=== PATIENT | male | born 1940 | race Caucasian/White ===

== ENCOUNTER 2023-06-09 10:29 | Emergency (ER) | payer MEDICARE, SELFPAY ==
[2023-06-09 10:45] VITALS: BP 208/97; PULSE 61; RESP 18; TEMP 36.8; O2SAT 100; BMI 34.0
[2023-06-09 11:15] LABS: Add Manual Diff / Slide Review NO; Basophils Absolute Auto 100 /uL (0-100); Basophils Percent Auto 1.1 % (0-2); Eosinophils Absolute Auto 200 /uL (0-450); Hematocrit 38.1 % (41-53); Hemoglobin 12.9 g/dL (13.5-17.5); Lymphocytes Absolute Auto 1900 /uL (1100-4500); Lymphocytes Percent Auto 23.6 % (25-40); Mean Corpuscular HGB Conc 33.9 % (30-36); Mean Corpuscular Hemoglobin 33.1 PG (26-34); Mean Corpuscular Volume 97.7 fL (80-100); Monocytes Absolute Auto 700 /uL (0-900); Monocytes Percent Auto 8.6 % (3-14); Neutrophils Absolute Auto 5200 /uL (1500-7000); Neutrophils Percent Auto 63.7 % (50-75); Platelet Count 228 X10^3/uL (150-400); White Blood Cell Count 8.1 X10^3/uL (4.5-11.0)
[2023-06-09 11:27] LABS: Alanine Aminotransferase 32 IU/L (<50); Albumin 4.2 g/dL (3.5-5.0); Albumin Globulin Ratio 1.4 (1.0-2.8); Alkaline Phosphatase 70 U/L (38-126); Aspartate Aminotransferase 32 IU/L (17-59); BUN Creatinine Ratio 30.1 (6-22); Bilirubin Total 0.8 mg/dL (0.2-1.3); Blood Urea Nitrogen 22 mg/dL (9-20); Calcium 9.3 mg/dL (8.4-10.2); Carbon Dioxide 29 mmol/L (22-32); Chloride 99 mmol/L (98-107); Estimated Glomerular Filt Rate > 60 mL/min (>60); Globulin 2.9 g/dL (1.7-4.1); Glucose 112 mg/dL (80-110); HEMOLYSIS < 15 (0-50); Lipase 36 U/L (23-300); Sodium 134 mmol/L (137-145); Total Protein 7.1 g/dL (6.3-8.2)
--- NOTE | 2023-06-09 11:47 | ED_ITS ---
HPI - Abdominal Pain General Chief Complaint: Abdominal Pain Stated Complaint: alot of ABD Pain Time Seen by Provider: 06/09/23 11:01 Source: patient Mode of arrival: Family Vehicle Limitations: no limitations History of Present Illness HPI narrative: This is an 82-year-old male with history of hypertension and atrial fibrillation on warfarin. Patient presents with complaint of left lower quadrant pain that has been present for about 4 5 days. He states initially very sharp and occasional, in the last 24 hours has become constant and persistent. He states it is worse with movement but does not hurt in his back or on his flank. He denies fevers or chills. No nausea no vomiting. No chest pain or shortness of breath. States it is very localized to the left side. Normal bowel movements, no black or bloody stools. He states he is urinary frequency been somewhat chronic but a little bit more recently. No dysuria no hematuria or difficulty with urination otherwise. Patient states he takes amlodipine, atenolol, hydrochlorothiazide, enalapril, warfarin as his daily medications. Denies prior surgeries. No known drug allergies. Former pipe smoker, 2 alcoholic drinks daily. Uses marijuana no other recreational or IV drugs. Related Data Home Medications Medication Instructions Recorded Confirmed amlodipine 5 mg tablet 5 mg PO DAILY 06/09/23 06/09/23 atenolol 25 mg tablet 25 mg PO BID 06/09/23 06/09/23 fluorouracil 5 % topical cream applic topical BID 06/09/23 hydrochlorothiazide 25 mg tablet 25 mg PO DAILY 06/09/23 06/09/23 lisinopril 40 mg tablet 40 mg PO BID 06/09/23 06/09/23 tadalafil 20 mg tablet 20 mg PO DAILY PRN intercourse 06/09/23 06/09/23 warfarin 2.5 mg tablet 5 mg PO DAILY 06/09/23 06/09/23 warfarin 5 mg tablet mg PO 06/09/23 zolpidem 5 mg tablet 7.5 mg PO ONCE PM PRN insomnia 06/09/23 06/09/23 Allergies Allergy/AdvReac Type Severity Reaction Status Date / Time No Known Drug Allergies Allergy Verified 06/09/23 10:51 Review of Systems Review of Systems ROS Unobtainable: All systems reviewed & are unremarkable except as noted in HPI and below Patient History Social History Smoking Status: Former smoker Smoking Status: Former smoker tobacco type: cigarettes alcohol intake frequency: 0-2 drinks per day Substance Use Type: marijuana Exam Narrative Exam Narrative: GENERAL: Alert and oriented x three, mild distress. HEENT: Head normocephalic, atraumatic, EOMI, pupils reactive, face symmetric, moist mucous membranes NECK: Supple, full range of motion CARDIOVASCULAR: Regular rate and rhythm without murmurs, rubs or gallops. RESPIRATORY: Breath sounds equal bilaterally, no wheezes rales or rhonchi. ABDOMEN: Soft, nontender. Normoactive bowel sounds all 4 quadrants. No guarding or rebound, rigidity, no mass : No CVA tenderness BACK: No cervical, thoracic or lumbar vertebral point tenderness. Patient has normal range of motion. Patient's gait is normal. Normal sensation bilateral lower extremities. EXTREMITIES: Normal range of motion, no clubbing or edema. Neurovascularly intact NEUROLOGICAL: Cranial nerves II through XII grossly intact. Moving all extremities SKIN: Warm, dry, no petechiae, no rashes or lesions, erythema, no blisters or other skin changes. Initial Vital Signs Initial Vital Signs: Vital Signs Temperature 98.3 F 06/09/23 10:45 Pulse Rate 61 06/09/23 10:45 Respiratory Rate 18 06/09/23 10:45 Blood Pressure 208/97 H 06/09/23 10:45 Pulse Oximetry 100 06/09/23 10:45 Oxygen Delivery Method Room Air 06/09/23 10:45 Course Orders Ordered: Discontinued Medications Acetaminophen (Acetaminophen 325 Mg Tablet) 650 mg PO NOW ONE Stop: 06/09/23 11:56 Last Admin: 06/09/23 12:02 Dose: 650 mg Documented By: RAKESH Ondansetron HCl (Ondansetron 4 Mg Odt) 4 mg PO NOW PRN PRN Reason: Nausea And Vomiting Ondansetron HCl (Ondansetron 4 Mg/2 Ml Inj) 4 mg IV NOW PRN PRN Reason: Nausea And Vomiting Vital Signs Vital signs: Vital Signs - 8 hr 06/09/23 10:45 Temperature 98.3 F Pulse Rate 61 Respiratory Rate 18 Blood Pressure 208/97 H Pulse Oximetry 100 Oxygen Delivery Method Room Air MDM - Abdominal Pain Lab Data 06/09/23 11:00 06/09/23 11:00 Labs: Lab Results 06/09/23 06/09/23 Range/Units 11:00 11:20 WBC 8.1 (4.5-11.0) X10^3/uL RBC 3.90 L (4.5-5.9) X10^6/uL Hgb 12.9 L (13.5-17.5) g/dL Hct 38.1 L (41-53) % MCV 97.7 (80-100) fL MCH 33.1 (26-34) PG MCHC 33.9 (30-36) % RDW 14.0 (11.6-14.8) % Plt Count 228 (150-400) X10^3/uL Neut % (Auto) 63.7 (50-75) % Lymph % (Auto) 23.6 L (25-40) % [place] % (Auto) 8.6 (3-14) % Eos % (Auto) 3.0 (2-4) % Baso % (Auto) 1.1 (0-2) % Neut # (Auto) 5200 (5266-7124) /uL Lymph # (Auto) 1900 (5484-9485) /uL [place] # (Auto) 700 (0-900) /uL Eos # (Auto) 200 (0-450) /uL Baso # (Auto) 100 (0-100) /uL PT 33.7 H (10.1-12.7) SECONDS INR 2.9 H (0.9-1.3) APTT 40 H (26-36) SECONDS Sodium 134 L (137-145) mmol/L Potassium 4.0 (3.4-5.1) mmol/L Chloride 99 (98-107) mmol/L Carbon Dioxide 29 (22-32) mmol/L BUN 22 H (9-20) mg/dL Creatinine 0.73 (0.66-1.25) mg/dL Estimated GFR > 60 (>60) mL/min BUN/Creatinine Ratio 30.1 H (6-22) Glucose 112 H (80-110) mg/dL Calcium 9.3 (8.4-10.2) mg/dL Total Bilirubin 0.8 (0.2-1.3) mg/dL AST 32 (17-59) IU/L ALT 32 (<50) IU/L Alkaline Phosphatase 70 (38-126) U/L Total Protein 7.1 (6.3-8.2) g/dL Albumin 4.2 (3.5-5.0) g/dL Globulin 2.9 (1.7-4.1) g/dL Albumin/Globulin Ratio 1.4 (1.0-2.8) Lipase 36 (23-300) U/L Point of care testing: Urine Dip Bedside Urine Glucose Negative Bedside Urine Bilirubin - Negative Bedside Urine Ketone - Negative Urine Specific [place] 1.010 Bedside Urine Occult Blood - Negative Bedside Urine pH 6.5 Bedside Urine Protein - Negative Bedside Urine Urobilinogen - Negative Bedside Urine Nitrite - Negative Bedside Urine Leukocytes - Negative Esterase Imaging Data CT scan - abdomen/pelvis: Radiologist's Impression: [address] [address] [address] Scan Report Signed Patient: Harinder Hall MR#: [id number] : 1940 Acct:[id number] Age/Sex: 82 / M Date of Service: 06/09/23 Loc: ED Accession Number: [id number] Procedure: CT abdomen pelvis w con Ordering Provider: Leti Oconnor D.O. PROCEDURE: CT ABDOMEN PELVIS W CON INDICATIONS: LLQ pain x 5 days, frequency, no flank pain TECHNIQUE: After the administration of intravenous contrast, axial sections acquired from the lung bases to the pubic symphysis. Coronal and sagittal reformats were performed. For radiation dose reduction, the following was used: automated exposure control, adjustment of mA and/or kV according to patient size. COMPARISON: None. FINDINGS: Image quality: Excellent. Lung bases: Unremarkable. Heart: No significant findings. ABDOMEN: Liver: Unremarkable. Gallbladder: Unremarkable. Biliary ducts: Unremarkable. Pancreas: Unremarkable. Spleen: Unremarkable. Adrenal Glands: Unremarkable. Kidneys and Ureters: Unremarkable. Stomach and Bowel: Stomach, small bowel loops, and colon are unremarkable. The appendix is not visualized; however there is no discrete right lower quadrant fluid or fat stranding to suggest acute appendicitis. Peritoneum: No abnormal intraperitoneal fluid. No free air. Ventral Wall: No hernias. Abdominal Nodes: No retroperitoneal or mesenteric adenopathy by size criteria. Vessels: Aorta and inferior vena cava are normal in size. There are scattered atheromatous calcifications throughout the aorta and iliac arteries bilaterally. PELVIS: Pelvic Organs: Unremarkable. Bladder: Unremarkable. Pelvic Nodes: No enlarged lymph nodes. Miscellaneous: There are bilateral moderate-sized fat containing inguinal hernias. 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 No compression deformities. IMPRESSION: 1. No acute intra-abdominal findings. No findings to explain left lower quadrant pain. The appendix is not visualized; however there are no ancillary findings to suggest acute appendicitis. Dictated by: Ngozi Regan M.D. on 06/09/2023 at 12:24 Approved by: Ngozi Regan M.D. on 06/09/2023 at 12:31 [facility] Narrative Medical decision making narrative: 82-year-old male with persistent left lower quadrant pain for the past 4 5 days. No reproducible pain on palpation. No flank pain. Patient's CBC, CMP lipase show no acute changes. He is little bit hypertensive today. He does not have any skin changes or signs of shingles. He does state it is worse with motion but no back pain on palpation. Plan for urine, CT abdomen pelvis to evaluate for diverticulitis or other acute intra-abdominal process. Point of care glucose is negative. Patient has hemoglobin of 12.9 crit of 38, platelets are 228 white count is 8.1. INR is 2.9 sodium is 134 normal electrolytes otherwise BUN 22 normal renal function, glucose 112 with LFTs which were negative. CT abdomen pelvis is otherwise negative with no acute change, severe degenerative changes in the thoracolumbar spine no compression deformities and bilateral moderate-sized fat containing inguinal hernia. 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 They do note inguinal hernias on both sides with a small amount of fat but no bowel. If these areas are painful you should follow-up with General surgery for repair. Your INR is 2.9. You may take Tylenol up to a 1000 mg every 6 hours as needed for pain. Please return for new or worsening symptoms fevers, increasing pain, numbness tingling or weakness loss of bowel or bladder control, black or bloody stools, lightheadedness or passing out or other new or concerning changes. Prescriptions: No Action amlodipine 5 mg tablet 5 mg PO DAILY atenolol 25 mg tablet 25 mg PO BID fluorouracil 5 % cream topical BID hydrochlorothiazide 25 mg tablet 25 mg PO DAILY lisinopril 40 mg tablet 40 mg PO BID warfarin 2.5 mg tablet 5 mg PO DAILY tadalafil 20 mg tablet 20 mg PO DAILY PRN (Reason: intercourse) warfarin 5 mg tablet PO zolpidem 5 mg tablet 7.5 mg PO ONCE PM PRN (Reason: insomnia) Stand Alone Forms: Patient Portal/API
--- NOTE | 2023-06-09 11:55 | DI.CT.S_ITS ---
PROCEDURE: CT ABDOMEN PELVIS W CON INDICATIONS: LLQ pain x 5 days, frequency, no flank pain TECHNIQUE: After the administration of intravenous contrast, axial sections acquired from the lung bases to the pubic symphysis. Coronal and sagittal reformats were performed. For radiation dose reduction, the following was used: automated exposure control, adjustment of mA and/or kV according to patient size. COMPARISON: None. FINDINGS: Image quality: Excellent. Lung bases: Unremarkable. Heart: No significant findings. ABDOMEN: Liver: Unremarkable. Gallbladder: Unremarkable. Biliary ducts: Unremarkable. Pancreas: Unremarkable. Spleen: Unremarkable. Adrenal Glands: Unremarkable. Kidneys and Ureters: Unremarkable. Stomach and Bowel: Stomach, small bowel loops, and colon are unremarkable. The appendix is not visualized; however there is no discrete right lower quadrant fluid or fat stranding to suggest acute appendicitis. Peritoneum: No abnormal intraperitoneal fluid. No free air. Ventral Wall: No hernias. Abdominal Nodes: No retroperitoneal or mesenteric adenopathy by size criteria. Vessels: Aorta and inferior vena cava are normal in size. There are scattered atheromatous calcifications throughout the aorta and iliac arteries bilaterally. PELVIS: Pelvic Organs: Unremarkable. Bladder: Unremarkable. Pelvic Nodes: No enlarged lymph nodes. Miscellaneous: There are bilateral moderate-sized fat containing inguinal hernias. 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 No compression deformities. IMPRESSION: 1. No acute intra-abdominal findings. No findings to explain left lower quadrant pain. The appendix is not visualized; however there are no ancillary findings to suggest acute appendicitis. Dictated by: Ngozi Regan M.D. on 06/09/2023 at 12:24 Approved by: Ngoiz Regan M.D. on 06/09/2023 at 12:31
[2023-06-09] MEDS: ACETAMINOPHEN 325 MG TABLET 650 MG PO (12:02)
[2023-06-09 12:04] LABS: INR 2.9 (0.9-1.3); Prothrombin Time 33.7 SECONDS (10.1-12.7)
[2023-06-09 12:07] LABS: PTT Partial Thromboplastin Tim 40 SECONDS (26-36)
[2023-06-09 14:17] VITALS: BP 208/98; PULSE 61; RESP 18; O2SAT 99
== END 2023-06-09 14:18 | disposition home or self-care (01) ==
PROVIDERS: Emergency Provider Emergency Medicine
DX: R10.32 Left lower quadrant pain (principal)
CPT/HCPCS: 36415; 74177; 80053; 81003; 83690; 85025; 85610; 85730; 99284; Q9967